=== PATIENT | female | born 1980 | race Two or more races ===

== ENCOUNTER 2024-04-12 10:15 | Inpatient (IN) | payer OTHER ==
[~2024-04-12] VITALS: Ht 160 cm; Wt 88.0 kg
[2024-04-12] MEDS ORDERED: PROCARDIA 60MG (12:37)
[2024-04-12] MEDS ORDERED: TOPROL XL100 M1 (12:37)
[2024-04-12 12:44] LABS: RH POSITIVE
[2024-04-12 12:57] VITALS: BP 114/79
[2024-04-20] MEDS ORDERED: CEFAZOLIN SODIUM 1,000 MG VIAL IV ONE (20:15)
[2024-04-20] MEDS ORDERED: POVIDONE-IODINE 118 ML BOTT TOP ONE (20:15)
[2024-04-20] MEDS ORDERED: METRONIDAZOLE/SODIUM CHLORIDE 500 MG/100 ML PIGGYBACK IV ONE (20:15)
[2024-04-20] MEDS ORDERED: THROMBIN,HU/FIBRINOGEN/CALCIUM 10 ML SYRINGE TOP ONE (20:15)
[2024-04-20] MEDS ORDERED: GABAPENTIN 300 MG CAPSULE PO SCH (21:00)
[2024-04-20] MEDS ORDERED: DOCUSATE SODIUM 100MG CAP PO SCH (21:00)
[2024-04-20] MEDS ORDERED: KETOROLAC TROMETHAMINE 30 MG VIAL IV SCH (21:00)
[2024-04-20] MEDS ORDERED: KETOROLAC TROMETHAMINE 30 MG VIAL IV ONE (21:00)
[2024-04-20] MEDS ORDERED: FAMOTIDINE/PF 20 MG/2 ML VIAL IV PUSH SCH (21:00)
[2024-04-20] MEDS ORDERED: RINGERS SOLUTION,LACTATED 1,000 ML IV SCH (21:00)
[2024-04-20] MEDS ORDERED: SIMETHICONE 125 MG CAPSULE PO SCH (21:00)
[2024-04-20] MEDS ORDERED: MORPHINE SULFATE 4 MG/ML CARTRIDGE IV PRN (21:00)
[2024-04-20] MEDS ORDERED: MORPHINE SULFATE 4 MG/ML VIAL IV ONE (22:20)
[2024-04-21] MEDS ORDERED: ACETAMINOPHEN 500 MG GEL..CAP PO SCH
[2024-04-21 00:47] LABS: HEMATOCRIT 41.2 % (36.0-45.00); HEMOGLOBIN 13.6 g/dL (12.0-15.00); MEAN CELL VOLUME 82.8 fL (80.00-100.00); MEAN CORPUSCULAR HEMOGLOBIN 27.4 pg (27.00-32.0); MEAN CORPUSCULAR HGB CONC 33.1 g/dl (32.0-36.0); PLATELET COUNT 266 K/uL (150-450); RED BLOOD COUNT 4.97 M/uL (4.00-6.00)
[2024-04-21] MEDS ORDERED: CEFAZOLIN SODIUM 1,000 MG VIAL IV SCH (01:00)
[2024-04-21] MEDS ORDERED: METOCLOPRAMIDE HCL 5 MG/ML VIAL IV SCH (01:00)
[2024-04-21 01:11] LABS: ALBUMIN 3.6 gm/dL (3.4-5.0); CALCIUM 8.7 mg/dL (8.5-10.1); CREATININE SERUM 0.66 mg/dL (0.55-1.02); GFR 97.29; PHOSPHOROUS 3.1 mg/dL (2.5-4.9); POTASSIUM 3.81 mEq/L (3.5-5.1)
[2024-04-21 03:30] VITALS: BP 117/72
[2024-04-21 07:27] LABS: HEMOGLOBIN 11.3 g/dL (12.0-15.00); MEAN CELL VOLUME 82.9 fL (80.00-100.00); MEAN CORPUSCULAR HEMOGLOBIN 27.5 pg (27.00-32.0); MEAN CORPUSCULAR HGB CONC 33.1 g/dl (32.0-36.0); PLATELET COUNT 246 K/uL (150-450); RED BLOOD COUNT 4.11 M/uL (4.00-6.00); RED CELL DISTRIBUTION WIDTH 14.8 % (11.5-14.5)
[2024-04-21] MEDS ORDERED: TRAMADOL HCL 50 MG TABLET PO PRN (07:45)
[2024-04-21 07:59] LABS: ALBUMIN 2.6 gm/dL (3.4-5.0); CALCIUM 8.1 mg/dL (8.5-10.1); CREATININE SERUM 0.68 mg/dL (0.55-1.02); GFR 93.99; PHOSPHOROUS 3.5 mg/dL (2.5-4.9); POTASSIUM 3.87 mEq/L (3.5-5.1)
[2024-04-21 08:53] VITALS: BP 104/60
[2024-04-21] MEDS ORDERED: ENOXAPARIN SODIUM 40 MG/0.4 ML SYRINGE SUBCUTANEO SCH (09:00)
[2024-04-21] MEDS ORDERED: IBUprofen 800 MG TABLET PO SCH (17:00)
[2024-04-21 17:22] VITALS: BP 109/73
[2024-04-22 00:19] VITALS: BP 94/63
[2024-04-22] MEDS ORDERED: METOPROLOL SUCCINATE 100 MG TAB.SR.24H PO SCH (09:00)
[2024-04-22 14:02] VITALS: BP 109/73
[2024-04-22 16:00] VITALS: BP 112/76
== END 2024-04-22 17:57 | disposition home or self-care (01) | DRG 743 ==
LOC: SURG 04-20 10:15 → O/R 04-20 16:15 → OB/GYN 04-20 22:23
PROVIDERS: Obstetrics & Gynecology; ADMIT Obstetrics & Gynecology Gynecologic Oncology; ATTEND Obstetrics & Gynecology Gynecologic Oncology
PROC: 0UT60ZZ Resection of Left Fallopian Tube, Open Approach (ICD-10-PCS; 2024-04-20)
PROC: 0UT10ZZ Resection of Left Ovary, Open Approach (ICD-10-PCS; 2024-04-20)
PROC: 0DNW0ZZ Release Peritoneum, Open Approach (ICD-10-PCS; 2024-04-20)
PROC: 0UT90ZZ Resection of Uterus, Open Approach (ICD-10-PCS; principal; 2024-04-20 16:00)
DX: D25.1 Intramural leiomyoma of uterus (principal); D25.2 Subserosal leiomyoma of uterus; D25.0 Submucous leiomyoma of uterus; N83.12 Corpus luteum cyst of left ovary; N72 Inflammatory disease of cervix uteri; N73.6 Female pelvic peritoneal adhesions (postinfective); R19.09 Other intra-abdominal and pelvic swelling, mass and lump; N92.0 Excessive and frequent menstruation with regular cycle; Z20.822 Contact with and (suspected) exposure to COVID-19